=== PATIENT | female | born 1935 | race Caucasian/White ===

== ENCOUNTER 2020-05-20 14:30 | Emergency (ER) | payer MEDICARE, BC ==
[~2020-05-20] VITALS: Ht 160 cm; Wt 40.0 kg
[~2020-05-20 14:30] MED LIST: ASPI-1265 PO; BUDE10.2 INH; ERGO500014 PO; METO50TA7 PO
[2020-05-20 16:25] LABS: BASOPHILS % (AUTO) 0.7 % (0-1); EOSINOPHILS % (AUTO) 0.5 % (0-6); HEMATOCRIT 34.2 % (35.0-45.0); HEMOGLOBIN 11.7 g/dl (12.0-16.0); LYMPHOCYTES # (AUTO) 0.7 X10'3 (1.1-4.8); LYMPHOCYTES % (AUTO) 13.5 % (21-51); MEAN CORPUSCULAR HEMOGLOBIN 31.5 PG (27.0-31.0); MEAN CORPUSCULAR HGB CONC 34.2 g/dL (33.0-36.5); MEAN CORPUSCULAR VOLUME 92.1 FL (78-98); MEAN PLATELET VOLUME 7.9 FL (7.4-10.4); MONOCYTES # (AUTO) 0.3 X10'3 (0-0.9); MONOCYTES % (AUTO) 6.3 % (2-12); NEUTROPHILS # (AUTO) 4.4 X10'3 (1.8-7.7); PLATELET COUNT 167 X10'3 (140-440); RED BLOOD COUNT 3.71 X10'6 (4.20-5.60); RED CELL DISTRIBUTION WIDTH 14.3 % (11.5-14.5); WHITE BLOOD COUNT 5.6 X10'3 (4.5-11.0)
[2020-05-20 16:39] LABS: ALBUMIN 3.5 G/DL (3.4-5.0); ANION GAP 8 (8-16); BLOOD UREA NITROGEN 14 MG/DL (7-18); BUN/CREATININE RATIO 15.9 (6.6-38.0); CHLORIDE 97 MMOL/L (99-107); CREATININE 0.88 MG/DL (0.40-0.90); GLUCOSE 95 MG/DL (70-104); SODIUM 138 MMOL/L (135-145); TOTAL CARBON DIOXIDE 33.4 MMOL/L (24-32); TROPONIN I 0.05 NG/ML (0.0-0.05); eGFR 61 ML/MIN
[2020-05-20] MEDS ORDERED: potassium Cl 20 mEq SR tablet PO STA (16:47)
[2020-05-20] MEDS ORDERED: iohexol 350MG/ML 100ml bottle IV ONE (17:59)
--- NOTE | 2020-05-20 20:48 | NUR ---
PT DAUGHTER SOPHIA ON WAY TO [employer] B[employer]ER #[phone]
[2020-05-20 21:43] VITALS: BP 111/73
== END 2020-05-20 21:52 | disposition home or self-care (01) ==
LOC: ER 14:30
DX: R07.89 Other chest pain (principal); R05 Cough; E78.00 Pure hypercholesterolemia, unspecified; I10 Essential (primary) hypertension; J44.9 Chronic obstructive pulmonary disease, unspecified; F32.9 Major depressive disorder, single episode, unspecified; Z72.89 Other problems related to lifestyle; Z88.0 Allergy status to penicillin; Z88.5 Allergy status to narcotic agent; Z79.82 Long term (current) use of aspirin; Z79.899 Other long term (current) drug therapy
CPT/HCPCS: 36415; 71045; 71275; 80048; 84484; 85025; 87635; 93005; 99285; C9803; Q9967

== ENCOUNTER 2023-05-07 09:08 | Inpatient (IN) | payer MEDICARE, BC ==
[~2023-05-07] VITALS: Ht 154.9 cm; Wt 35.0 kg
[2023-05-07 12:54] LABS: BASOPHILS # (AUTO) 0.1 X10'3 (0-0.2); BASOPHILS % (AUTO) 0.6 % (0-1); EOSINOPHILS # (AUTO) 0.1 X10'3 (0-0.9); HEMATOCRIT 35.7 % (35.0-45.0); HEMOGLOBIN 11.8 g/dl (12.0-16.0); LYMPHOCYTES # (AUTO) 1.2 X10'3 (1.1-4.8); LYMPHOCYTES % (AUTO) 13.6 % (21-51); MEAN CORPUSCULAR HEMOGLOBIN 29.4 PG (27.0-31.0); MEAN PLATELET VOLUME 7.2 FL (7.4-10.4); MONOCYTES # (AUTO) 1.1 X10'3 (0-0.9); MONOCYTES % (AUTO) 12.8 % (2-12); NEUTROPHILS # (AUTO) 6.1 X10'3 (1.8-7.7); PLATELET COUNT 367 X10'3 (140-440); RED BLOOD COUNT 4.01 X10'6 (4.20-5.60); WHITE BLOOD COUNT 8.5 X10'3 (4.5-11.0)
[2023-05-07 13:07] LABS: ALANINE AMINOTRANSFERASE 15 U/L (12-78); ALBUMIN 3.4 G/DL (3.4-5.0); ALBUMIN/GLOBULIN RATIO 0.9 (1.1-1.5); ALKALINE PHOSPHATASE 72 IU/L (46-116); ANION GAP 7 (8-16); ASPARTATE AMINO TRANSFERASE 23 U/L (10-37); BILIRUBIN,TOTAL 0.5 MG/DL (0.1-1.0); BLOOD UREA NITROGEN 14 MG/DL (7-18); CALCIUM 10.8 MG/DL (8.5-10.1); CHLORIDE 95 MMOL/L (99-107); GLUCOSE 92 MG/DL (70-104); MAGNESIUM 1.5 MG/DL (1.5-2.4); SODIUM 137 MMOL/L (135-145); TOTAL CARBON DIOXIDE 35.4 MMOL/L (24-32); TOTAL PROTEIN 7.1 G/DL (6.4-8.2); eCRCL 31 ML/MIN; eGFR 79 ML/MIN
[2023-05-07 13:09] LABS: POTASSIUM 2.6 MMOL/L (3.5-5.1)
[2023-05-07] MEDS ORDERED: potassium Cl 20 mEq SR tablet PO STA (14:03)
[2023-05-07] MEDS ORDERED: potassium 20mEq/D5LR 1000ml bag IV ONE (14:05)
[2023-05-07] MEDS ORDERED: HYDR-3964 PO (14:25)
[2023-05-07] MEDS ORDERED: IPRA3AMP31 (14:25)
[2023-05-07] MEDS ORDERED: BUDE10.26 PO (14:25)
[2023-05-07] MEDS ORDERED: TEMA15CA PO (14:25)
[2023-05-07] MEDS ORDERED: CHOL500050 PO (14:26)
[2023-05-07] MEDS ORDERED: MULT-1085 PO (14:26)
[2023-05-07] MEDS ORDERED: magnesium hydroxide 30ml (MOM) UD suspension PO PRN (14:30)
[2023-05-07] MEDS ORDERED: magnesium 2GM in 50ml NS 50 ML IV PRN (14:30)
[2023-05-07] MEDS ORDERED: HYDROcodone/acetaminophen 5mg/325mg tablet PO PRN (14:30)
[2023-05-07] MEDS ORDERED: magnesium 4gm in 100ml NS 100 ML IV PRN (14:30)
[2023-05-07] MEDS ORDERED: acetaminophen 325mg tablet PO PRN (14:30)
[2023-05-07] MEDS ORDERED: potassium Cl 20 mEq SR tablet PO PRN ×2 (14:30)
[2023-05-07] MEDS ORDERED: ondansetron/PF 4mg/2ml inj IV PRN (14:30)
[2023-05-07] MEDS ORDERED: potassium Cl 40MEQ/1/2NS 520ml 520 ML IV PRN (14:30)
[2023-05-07] MEDS ORDERED: mag hydrox/Alum hydrox/simeth 30ml oral suspension PO PRN (14:30)
[2023-05-07] MEDS ORDERED: temazepam 15mg capsule PO PRN (14:40)
[2023-05-07] MEDS ORDERED: ipratropium/albuterol 3ml nebule IH PRN (14:40)
[2023-05-07] MEDS ORDERED: POTASSIUM BICARB 20meq eff tab 20 MEQ TABLET.EFF PO ONE (14:45)
[2023-05-07] MEDS: albuterol 2.5 MG/3 ML nebule NEB SCH ×2 (15:00→20:37)
[2023-05-07] MEDS ORDERED: LidoCAINE 2% Topical Jelly 11mL syringe TOP ONE (15:15)
[2023-05-07 15:20] LABS: BILIRUBIN,URINE NEGATIVE (Neg); CLARITY,URINE SLIGHTLY CLOUDY (Clear); COLOR,URINE YELLOW (Yellow); GLUCOSE, URINE NEGATIVE (Neg); KETONES,URINE TRACE mg/dl (Neg); LEUKOCYTE ESTERASE ,URINE NEGATIVE (Neg); NITRITES, URINE NEGATIVE (Neg); OCCULT BLOOD,URINE NEGATIVE (Neg); PROTEIN,URINE NEGATIVE (Neg); UROBILINOGEN,URINE 0.2 E.U/dL (0.2-1.0)
[2023-05-07] MEDS: diphenhydrAMINE 25mg capsule PO PRN (15:21)
[2023-05-07] MEDS: HYDROcodone/acetaminophen 10/325mg tab PO PRN (15:21)
[2023-05-07 15:34] LABS: UA COLLECTION TYPE CLN CATCH MIDSTREAM
[2023-05-07 15:35] LABS: SQUAMOUS EPITHELIAL CELL,UR MANY /LPF (FEW)
[2023-05-07] MEDS: normal saline 1000ml 1,000 ML IV SCH (15:35)
[2023-05-07 15:36] LABS: MUCUS STRANDS FEW /LPF (Neg)
[2023-05-07 15:37] LABS: CAL OXALATE CRYSTALS 4+ /HPF (NEGATIVE); TRANSITIONAL EPI CELLS,URINE FEW /HPF
[2023-05-07 15:38] LABS: BACTERIA,URINE FEW /HPF (Neg)
[2023-05-07] MEDS ORDERED: iohexol 300mg/ml 100ml inj. ONE (15:55)
[2023-05-07 16:26] LABS: APTT 35 SECONDS (22-32); PHOSPHORUS 2.9 MG/DL (2.3-4.5); PROTHROMBIN TIME 10.9 SECONDS (9.0-12.0); THYROID STIMULATING HORMONE 2.21 ulU/ml (0.34-4.50)
[2023-05-07] MEDS: amLODIPine 5mg tablet PO SCH (16:40)
--- NOTE | 2023-05-07 19:00 | NUR ---
FOOD TRAY PROVIDED
[2023-05-07] MEDS: docusate sod 100mg capsule PO SCH (20:00)
[2023-05-07 20:37] VITALS: PULSE 91; RESP 16; O2SAT 93
[2023-05-07] MEDS: budesonide 0.5mg/2ml UD nebule IH SCH (20:37)
[2023-05-07 20:43] VITALS: PULSE 87; RESP 16
--- NOTE | 2023-05-07 23:00 | NUR ---
pt placed onto in -patient bed
[2023-05-07 23:32] LABS: ALANINE AMINOTRANSFERASE 15 U/L (12-78); ALBUMIN 3.2 G/DL (3.4-5.0); ALBUMIN/GLOBULIN RATIO 0.9 (1.1-1.5); ALKALINE PHOSPHATASE 68 IU/L (46-116); ANION GAP 4 (8-16); ASPARTATE AMINO TRANSFERASE 22 U/L (10-37); BILIRUBIN,TOTAL 0.5 MG/DL (0.1-1.0); BLOOD UREA NITROGEN 15 MG/DL (7-18); BUN/CREATININE RATIO 21.7 (10.0-20.0); CALCIUM 10.6 MG/DL (8.5-10.1); CHLORIDE 97 MMOL/L (99-107); CREATININE 0.69 MG/DL (0.40-0.90); GLUCOSE 85 MG/DL (70-104); POTASSIUM 4.5 MMOL/L (3.5-5.1); SODIUM 135 MMOL/L (135-145); TOTAL CARBON DIOXIDE 33.7 MMOL/L (24-32); TOTAL PROTEIN 6.6 G/DL (6.4-8.2); eCRCL 32 ML/MIN; eGFR 80 ML/MIN
[2023-05-07] MEDS: K and/or MAG REPLACEMENT MC SCH (23:35)
[2023-05-08] VITALS (7 sets, daily range): PULSE 78–86; RESP 14–18; O2SAT 95–99
[2023-05-08] MEDS: albuterol 2.5 MG/3 ML nebule NEB SCH ×4 (03:23→20:51)
--- NOTE | 2023-05-08 06:35 | NUR ---
0630 received report from Neeraj cano assuming care of pt resting quietly at present time resps even and unlabored
[2023-05-08] MEDS: K and/or MAG REPLACEMENT MC SCH (06:38)
[2023-05-08 07:42] LABS: BASOPHILS # (AUTO) 0.1 X10'3 (0-0.2); BASOPHILS % (AUTO) 0.9 % (0-1); EOSINOPHILS # (AUTO) 0.1 X10'3 (0-0.9); EOSINOPHILS % (AUTO) 0.6 % (0-6); HEMOGLOBIN 10.6 g/dl (12.0-16.0); LYMPHOCYTES # (AUTO) 1.1 X10'3 (1.1-4.8); LYMPHOCYTES % (AUTO) 11.5 % (21-51); MEAN CORPUSCULAR HEMOGLOBIN 29.5 PG (27.0-31.0); MEAN CORPUSCULAR VOLUME 89.3 FL (78-98); MEAN PLATELET VOLUME 7.4 FL (7.4-10.4); MONOCYTES # (AUTO) 0.8 X10'3 (0-0.9); MONOCYTES % (AUTO) 8.8 % (2-12); NEUTROPHILS # (AUTO) 7.5 X10'3 (1.8-7.7); NEUTROPHILS % (AUTO) 78.2 % (42-75); PLATELET COUNT 324 X10'3 (140-440); RED BLOOD COUNT 3.59 X10'6 (4.20-5.60); RED CELL DISTRIBUTION WIDTH 14.3 % (11.5-14.5); WHITE BLOOD COUNT 9.6 X10'3 (4.5-11.0)
[2023-05-08 08:10] LABS: ALANINE AMINOTRANSFERASE 14 U/L (12-78); ALBUMIN 3.3 G/DL (3.4-5.0); ALBUMIN/GLOBULIN RATIO 0.9 (1.1-1.5); ALKALINE PHOSPHATASE 68 IU/L (46-116); ANION GAP 9 (8-16); ASPARTATE AMINO TRANSFERASE 29 U/L (10-37); BILIRUBIN,TOTAL 0.5 MG/DL (0.1-1.0); BLOOD UREA NITROGEN 13 MG/DL (7-18); BUN/CREATININE RATIO 19.4 (10.0-20.0); CALCIUM 10.7 MG/DL (8.5-10.1); CHLORIDE 97 MMOL/L (99-107); CREATININE 0.67 MG/DL (0.40-0.90); GLUCOSE 88 MG/DL (70-104); MAGNESIUM 1.6 MG/DL (1.5-2.4); POTASSIUM 4.2 MMOL/L (3.5-5.1); SODIUM 137 MMOL/L (135-145); TOTAL CARBON DIOXIDE 30.7 MMOL/L (24-32); TOTAL PROTEIN 6.8 G/DL (6.4-8.2); eCRCL 33 ML/MIN; eGFR 83 ML/MIN
[2023-05-08] MEDS: budesonide 0.5mg/2ml UD nebule IH SCH ×2 (08:19→20:50)
[2023-05-08] MEDS: multivitamins, therapeutics tablet PO SCH (08:19)
[2023-05-08] MEDS: amLODIPine 5mg tablet PO SCH (08:21)
[2023-05-08] MEDS: docusate sod 100mg capsule PO SCH ×2 (08:21→20:00)
[2023-05-08] MEDS: cholecalciferol (vitamin D3) 1,000 unit (25mcg) tablet PO SCH (08:27)
--- NOTE | 2023-05-08 11:05 | NUR ---
Malnutrition Consult: TC to RD 05/07 prior to pt planned admission requests RD assessment given pt cachectic presentation. Pt now admitted DX FTT rule out malignancy, chronic back pain, hypokalemia, COPD, and HTN hx decreased appetite and wt loss per EMR. PO pending initial meals on regular diet w/ almost none of breakfast eaten this AM during RD visit. Pending scaled wt this admit w/ current reported wt 35kg(77 pounds) making BMI 14.6; no recent scaled wt hx in EMR. Pt seen by RD at bedside; pt confirms decreased appetite most foods don't seem appealing, and wt loss though unable to provide accurate wt hx. Pt clearly emaciated during RD visit meets severe malnutrition criteria- MD notified. Pt reports dislikes cream of wheat, oatmeal, Ensures; does require chopped meats and soft to chew foods to ease of PO. Pt then reports trouble swallowing given hx thyroid mass no issues w/ liquids mainly pills and larger bites of foods- POT FEEDER notified. Per pt, loves vanilla milkshakes, donuts, and grilled cheese sandwiches w/ cheddar cheese wants grilled cheese WL today, vanilla milkshakes TID, donuts WB; dietary notified. Pt receiving routine MVI MD agreeable to change to MVM w/ Fe following verbal d/w RD. Pt provided w/ RD contact information and [employer]uc[employer] ONS coupons since may be more likely to use despite disliking of ONS; RD encouraged pt to make food preferences known and to contact dietitians' office if further nutrition questions/concerns. No BM yet though admitted yesterday receiving routine colace. Will monitor for further nutrition intervention needs this admit. Rec: 1. continue regular diet; soft to chew and chopped meats pending POT FEEDER BSS; encourage PO 2. whole milk TID, vanilla milkshake TID, cold cereals/donuts WB all days, grilled cheese WL today -honor food preferences as able 3. routine MVM w/ Fe supplementation given severe malnutrition status 4. routine bowel care 5. scaled wt this admit; subsequent weekly wt Addendum: 05/08/23 at [address] Amended: Links added.
[2023-05-08] MEDS: normal saline 1000ml 1,000 ML IV SCH (11:35)
--- NOTE | 2023-05-08 19:08 | NUR ---
REC'D PT IN HOSP BED IN POC IN NAD PEND ROOM AVAILABILITY
[2023-05-09] VITALS (13 sets, daily range): BP systolic 105–144; BP diastolic 54–87; PULSE 55–95; RESP 14–24; TEMP 97.5–98.8; O2SAT 91–100
[2023-05-09] MEDS: albuterol 2.5 MG/3 ML nebule NEB SCH ×4 (03:21→20:26)
[2023-05-09] MEDS: K and/or MAG REPLACEMENT MC SCH ×3 (05:02→20:00)
[2023-05-09 06:07] LABS: BASOPHILS % (AUTO) 0.5 % (0-1); EOSINOPHILS % (AUTO) 0.4 % (0-6); HEMATOCRIT 30.7 % (35.0-45.0); HEMOGLOBIN 10.1 g/dl (12.0-16.0); LYMPHOCYTES # (AUTO) 0.9 X10'3 (1.1-4.8); LYMPHOCYTES % (AUTO) 10.1 % (21-51); MEAN CORPUSCULAR HEMOGLOBIN 29.5 PG (27.0-31.0); MEAN CORPUSCULAR VOLUME 89.5 FL (78-98); MEAN PLATELET VOLUME 7.1 FL (7.4-10.4); MONOCYTES # (AUTO) 0.9 X10'3 (0-0.9); MONOCYTES % (AUTO) 9.3 % (2-12); NEUTROPHILS # (AUTO) 7.3 X10'3 (1.8-7.7); NEUTROPHILS % (AUTO) 79.7 % (42-75); PLATELET COUNT 305 X10'3 (140-440); RED BLOOD COUNT 3.43 X10'6 (4.20-5.60); RED CELL DISTRIBUTION WIDTH 13.8 % (11.5-14.5); WHITE BLOOD COUNT 9.2 X10'3 (4.5-11.0)
[2023-05-09 06:19] LABS: ALANINE AMINOTRANSFERASE 16 U/L (12-78); ALBUMIN/GLOBULIN RATIO 0.9 (1.1-1.5); ALKALINE PHOSPHATASE 67 IU/L (46-116); ANION GAP 6 (8-16); ASPARTATE AMINO TRANSFERASE 27 U/L (10-37); BILIRUBIN,TOTAL 0.5 MG/DL (0.1-1.0); BLOOD UREA NITROGEN 12 MG/DL (7-18); BUN/CREATININE RATIO 19.7 (10.0-20.0); CALCIUM 10.2 MG/DL (8.5-10.1); CHLORIDE 102 MMOL/L (99-107); CREATININE 0.61 MG/DL (0.40-0.90); GLUCOSE 119 MG/DL (70-104); MAGNESIUM 1.4 MG/DL (1.5-2.4); POTASSIUM 3.5 MMOL/L (3.5-5.1); SODIUM 140 MMOL/L (135-145); TOTAL CARBON DIOXIDE 32.3 MMOL/L (24-32); TOTAL PROTEIN 6.5 G/DL (6.4-8.2); eCRCL 36 ML/MIN; eGFR > 90 ML/MIN
--- NOTE | 2023-05-09 06:20 | NUR ---
received report from mohit, rn
[2023-05-09] MEDS: budesonide 0.5mg/2ml UD nebule IH SCH ×2 (08:19→20:26)
[2023-05-09] MEDS: cholecalciferol (vitamin D3) 1,000 unit (25mcg) tablet PO SCH (08:43)
[2023-05-09] MEDS: multivitamins, therapeutics tablet PO SCH (08:45)
[2023-05-09] MEDS: magnesium Cl slow-release 64mg tablet PO PRN ×2 (08:45→16:00)
[2023-05-09] MEDS: amLODIPine 5mg tablet PO SCH (08:45)
[2023-05-09] MEDS: docusate sod 100mg capsule PO SCH ×2 (08:46→20:04)
--- NOTE | 2023-05-09 09:40 | NUR ---
Student documentation: I have reviewed and agree with the assessment performed and documented by Rosalva Student Nurse.
[2023-05-09] MEDS ORDERED: pneumococcal 23-VAL P-sac vacc 25 mcg/0.5ml vial IMVAC ONE (10:00)
--- NOTE | 2023-05-09 10:14 | NUR ---
called resident on behalf of family members who has questions about patient care, resident told me that she would look into the patient records and that they were waiting for discharge planning to speak with the patient/family
--- NOTE | 2023-05-09 15:17 | NUR ---
Nutrition consult: re "not eating no appetite". Pt seen by RD yesterday for food preferences and for malnourished status. See prior RD note for full note. Pt seen by ENDS DOWN CHECKER and recommends continuing soft bite sized/chopped all. If low intake persist, pt may benefit from an appetite stimulant per physician discretion. Will continue to monitor. Addendum: 05/09/23 at [address] Amended: Links added.
[2023-05-09] MEDS: HYDROcodone/acetaminophen 10/325mg tab PO PRN ×2 (15:57→20:18)
[2023-05-09] MEDS: diphenhydrAMINE 25mg capsule PO PRN (15:59)
[2023-05-09] MEDS: normal saline 1000ml 1,000 ML IV SCH (17:53)
--- NOTE | 2023-05-09 18:13 | NUR ---
GAVE REPORT TO THAIS DEGROOT
--- NOTE | 2023-05-09 18:35 | NUR ---
Received report from Emelina FERNANDEZ and assumed care of pt
[2023-05-10] MEDS: albuterol 2.5 MG/3 ML nebule NEB SCH ×2 (02:52→13:41)
--- NOTE | 2023-05-10 03:03 | NUR ---
Agree with Cheep Jiménez LVn physical assessment.
[2023-05-10 06:05] LABS: BASOPHILS # (AUTO) 0.1 X10'3 (0-0.2); BASOPHILS % (AUTO) 0.6 % (0-1); EOSINOPHILS # (AUTO) 0.1 X10'3 (0-0.9); EOSINOPHILS % (AUTO) 0.7 % (0-6); HEMATOCRIT 28.3 % (35.0-45.0); HEMOGLOBIN 9.4 g/dl (12.0-16.0); LYMPHOCYTES # (AUTO) 0.9 X10'3 (1.1-4.8); MEAN CORPUSCULAR HEMOGLOBIN 29.9 PG (27.0-31.0); MEAN CORPUSCULAR HGB CONC 33.3 g/dL (33.0-36.5); MEAN CORPUSCULAR VOLUME 89.7 FL (78-98); MEAN PLATELET VOLUME 7.6 FL (7.4-10.4); MONOCYTES # (AUTO) 0.8 X10'3 (0-0.9); MONOCYTES % (AUTO) 8.8 % (2-12); NEUTROPHILS # (AUTO) 7.2 X10'3 (1.8-7.7); NEUTROPHILS % (AUTO) 79.9 % (42-75); PLATELET COUNT 247 X10'3 (140-440); RED BLOOD COUNT 3.16 X10'6 (4.20-5.60); RED CELL DISTRIBUTION WIDTH 14.3 % (11.5-14.5); WHITE BLOOD COUNT 9.1 X10'3 (4.5-11.0)
[2023-05-10 06:24] LABS: ALANINE AMINOTRANSFERASE 13 U/L (12-78); ALBUMIN 2.6 G/DL (3.4-5.0); ALBUMIN/GLOBULIN RATIO 0.8 (1.1-1.5); ALKALINE PHOSPHATASE 58 IU/L (46-116); ANION GAP 5 (8-16); ASPARTATE AMINO TRANSFERASE 23 U/L (10-37); BILIRUBIN,TOTAL 0.5 MG/DL (0.1-1.0); BLOOD UREA NITROGEN 13 MG/DL (7-18); BUN/CREATININE RATIO 22.4 (10.0-20.0); CALCIUM 9.3 MG/DL (8.5-10.1); CHLORIDE 106 MMOL/L (99-107); CREATININE 0.58 MG/DL (0.40-0.90); GLUCOSE 89 MG/DL (70-104); MAGNESIUM 1.5 MG/DL (1.5-2.4); POTASSIUM 3.6 MMOL/L (3.5-5.1); SODIUM 141 MMOL/L (135-145); TOTAL CARBON DIOXIDE 30.4 MMOL/L (24-32); eCRCL 38 ML/MIN; eGFR > 90 ML/MIN
[2023-05-10] MEDS: normal saline 1000ml 1,000 ML IV SCH (06:40)
[2023-05-10 07:00] VITALS: BP 165/74; PULSE 74; RESP 14; TEMP 97.7; O2SAT 98
[2023-05-10] MEDS: K and/or MAG REPLACEMENT MC SCH (08:00)
[2023-05-10 08:52] VITALS: BP_SYST 165
[2023-05-10] MEDS: multivitamins, therapeutics tablet PO SCH (08:52)
[2023-05-10] MEDS: amLODIPine 5mg tablet PO SCH (08:52)
[2023-05-10] MEDS: cholecalciferol (vitamin D3) 1,000 unit (25mcg) tablet PO SCH (08:52)
[2023-05-10] MEDS: docusate sod 100mg capsule PO SCH (08:53)
[2023-05-10 09:49] VITALS: PULSE 78; RESP 20; O2SAT 94
[2023-05-10 09:58] VITALS: PULSE 82; RESP 20
[2023-05-10 13:43] VITALS: PULSE 102; RESP 20; O2SAT 92
[2023-05-10 13:52] VITALS: PULSE 89; RESP 20
--- NOTE | 2023-05-10 13:55 | NUR ---
Report called to Cristina PLASCENCIA at [facility]. Questions answered. PIV to be left in per accepting nurses request as pt reports being very difficult to place an IV.
--- NOTE | 2023-05-10 14:00 | NUR ---
THERAPIST SPEECH documentation: I have reviewed and agree with all interventions, assessments performed and documented by Virginia Fuentes LVN.
--- NOTE | 2023-05-10 14:25 | NUR ---
Patient transferred to [facility] via [facility]. Personal belongings taken by family.
== END 2023-05-10 14:25 | DRG 640 ==
LOC: ER 09:09 → ED HOLD 14:36 → EDBEDREQ 05-08 21:38 → ORTHO 4S 05-09 00:10
PROVIDERS: ADMIT Internal Medicine; ATTEND Internal Medicine
PROC: BW251ZZ Computerized Tomography (CT Scan) of Chest, Abdomen and Pelvis using Low Osmolar Contrast (ICD-10-PCS; principal; 2023-05-07)
PROC: 3E0234Z Introduction of Serum, Toxoid and Vaccine into Muscle, Percutaneous Approach (ICD-10-PCS; 2023-05-07)
DX: E87.6 Hypokalemia (principal); E43 Unspecified severe protein-calorie malnutrition; Z68.1 Body mass index [BMI] 19.9 or less, adult; B02.29 Other postherpetic nervous system involvement; G89.29 Other chronic pain; E78.00 Pure hypercholesterolemia, unspecified; I25.10 Atherosclerotic heart disease of native coronary artery without angina pectoris; I10 Essential (primary) hypertension; I77.810 Thoracic aortic ectasia; L30.8 Other specified dermatitis; K59.00 Constipation, unspecified; M54.9 Dorsalgia, unspecified; K83.8 Other specified diseases of biliary tract; M43.9 Deforming dorsopathy, unspecified; N94.89 Other specified conditions associated with female genital organs and menstrual cycle; F17.210 Nicotine dependence, cigarettes, uncomplicated; E07.89 Other specified disorders of thyroid; J44.9 Chronic obstructive pulmonary disease, unspecified; F32.A Depression, unspecified; Z88.0 Allergy status to penicillin; Z82.49 Family history of ischemic heart disease and other diseases of the circulatory system; Z88.5 Allergy status to narcotic agent; Z79.82 Long term (current) use of aspirin; Z79.899 Other long term (current) drug therapy
CPT/HCPCS: 36415; 71045; 71260; 74177; 80053; 81001; 83605; 83735; 84100; 84443; 85025; 85610; 85730; 87040; 87081; 92508; 92616; 93005; 94640; 94760; 97161; 97530; 97535; 99285; A4353; G0378; J3480; J3490; J7030; Q0163; Q9967